=== PATIENT | male | born 2000 | race Caucasian/White ===

== ENCOUNTER 2024-08-03 11:02 | Emergency (ER) | payer OTHER, SELFPAY ==
[2024-08-03 11:39] VITALS: BP 116/77; PULSE 76; RESP 16; TEMP 36.7; O2SAT 98; BMI 27.6
--- NOTE | 2024-08-03 11:44 | ED.GENADULT ---
HPI - General Adult General Chief complaint: Ear Problems Stated complaint: Loss of hearing R ear Time Seen by Provider: 08/03/24 11:43 Source: patient, RN notes reviewed and old records reviewed Mode of arrival: ambulatory Limitations: no limitations History of Present Illness ED Provider: Anette NG narrative: 23-year-old male presents for evaluation of hearing loss. Patient was seen at outside facility about 2 weeks ago and diagnosed with bullous pharyngitis of the right ear. He was prescribed azithromycin He was also diagnosed with the tympanic membrane rupture of the time and was referred to ENT. The patient has not yet followed up with ENT He no longer has any pain to the right ear, there was no drainage from the right ear but reports decreased hearing over the last 4 days Related Data Allergies Allergy/AdvReac Type Severity Reaction Status Date / Time No Known Allergies Allergy Verified 08/03/24 11:43 Review of Systems Constitutional: Constitutional: Denies body ache(s), Denies chills, Denies fever(s) and Denies headache(s) ENT: Denies otalgia, Denies headache(s) and Reports hearing loss Neurologic: Denies headache(s) PMFSH Social History Social History Advance Directives: No Advance Directives Information Provided: Yes Physical Exam ED Vital Signs: Vital Signs - 24 hr 08/03/24 11:39 Temperature 98.1 F Pulse Rate 76 Respiratory Rate 16 Blood Pressure 116/77 Pulse Oximetry 98 Oxygen Delivery Method Room Air BMI result Body Mass Index 27.6 Const General: healthy appearing, comfortable, no acute distress, alert and awake Nutritional Appearance: well nourished HENNM Other: Right TM perforation. External ear canals clear. There is minimal erythema to the remaining TM. No otorrhea. No mastoid tenderness or postauricular edema Head: Yes normocephalic and Yes atraumatic Eyes Eyelids: Yes eyelids normal Conjunctivae: conjunctivae normal Sclerae: sclerae normal Corneas: corneas normal Pupils: Equal, round and reactive pupils present EOM: EOMs intact bilaterally Neck Neck: Yes full ROM Resp Effort & Inspection: normal respiratory effort, able to speak in complete sentences and not labored Skin General skin exam: elasticity normal Neuro Cranial nerves: Yes CN's II-XII intact bilaterally, Yes Equal, round and reactive pupils present and Yes Bilaterally intact EOM present Cognition (Neuro): normal cognition Extrem Other: Moving all extremities well without any obvious deformities Medical Decision Making Medical Decision Making MDM Narrative: 23-year-old male presents for evaluation of hearing loss to the right ear, he is 2 weeks status post a right tympanic membrane rupture, he was completed a course of azithromycin, he no longer has pain to the area. There was no evidence of acute infection to the area but the patient likely has hearing loss related to the tympanic membrane rupture. I encouraged him to follow up with ENT. I gave him a referral to our ENT office and he still has a referral to the outside facility as well. Differential Diagnosis Differential Diagnoses: The differential diagnosis associated with the presentation includes Sensorineural hearing loss Tympanic membrane rupture Otitis media Mastoiditis Discharge Plan Discharge Clinical Impression: Tympanic membrane perforation Patient Disposition: Home, Self-Care Instructions: Ruptured Eardrum (ED) Additional Instructions: It is important that you follow-up with the program and research coordinator. You should try not to get any water in your ear until then Follow-up with your primary doctor as well Referrals: Sachin Lee [Physician] - (right tm rupture, hearing loss) Print Language: Croatian
[2024-08-03 12:29] VITALS: BP 116/77; PULSE 76; RESP 16; TEMP 36.7; O2SAT 98
--- OUTSIDE RECORDS SUMMARY | 2024-08-03 15:40 | XMS_ITS | Clinical Summary ---
Author Organization [facility] Address [address] [place] [address] Phone Care Team Providers Care Trimmer Operator Three Knife Name Role Phone Physician, No Pcp Primary Care Provider Unavaila ble Allergies No known active allergies Medications Medication Sig Dispensed Refills Start Date End Date Status ibuprofen (ADVIL,MOTRIN) 600 mg tablet Take 1 tablet (600 mg total) by mouth every 6 (six) hours if needed for mild pain for up to 60 doses. 60 tablet 07/18/2024 Active azithromycin (ZITHROMAX) 250 mg tablet Take 2 tablets (500 mg total) by mouth 1 (one) time each day for 1 day, THEN 1 tablet (250 mg total) 1 (one) time each day for 4 days. 6 each 07/18/2024 07/23/2024 Encounters Date Type Department Care Team Description 07/18/2024 8:30 AM EST - 07/18/2024 10:49 AM EST Emergency [facility] Emergency [address] [place] [address] Bullous myringitis of right ear (Primary Dx); Ear drum perforation, right Discharge Disposition: Home or Self Care from Last 3 Months Social History Tobacco Use Types Packs/Day Years Used Date Smoking Tobacco: Never Smokeless Tobacco: Never Tobacco Cessation:Counseling Given: Not Answered Alcohol Use Standard Drinks/Week Comments Never 0 (1 standard drink = 0.6 oz pur e alcohol) Sex and Gender Information Value Date Recorded Sex Assigned at Male 07/18/2024 10:40 AM EST Gender Identity Male 07/18/2024 10:40 AM EST Sexual Orientation Straight 07/18/2024 10 :40 AM EST Job Start Date Occupation Industry Not on file Not on file Not on file Obstetrics History Last Filed Vital Signs Vital Sign Reading Time Taken Comments Blood Pressure 110/72 07/18/2024 7:55 AM EST Pulse 72 07/18/2024 7:55 AM EST Temperature 37 ??C (98.6 ??F) 07/18/2024 7:55 AM EST Respiratory Rate 18 07/18/2024 7:55 AM EST Oxygen Saturation 98% 07/18/2024 7:55 AM EST Inhaled Oxygen Concentration - - Weight 85.3 kg (188 lb) 07/18/2024 7:55 AM EST Height 175.3 cm (5' 9 ) 07/18/2024 7:55 AM EST Body Mass Index 27.76 07/18/2024 7:55 AM EST Plan of Treatment Health Maintenance Due Date Last Done Comments HPV Vaccines (1 - Male 3-dos e series) 2017 DTaP,Tdap,and Td Vaccines (1 - Tdap) 2021 Hepatitis B Vaccines (1 of 3 - 19+ 3-dose series) 2021 COVID-19 Vaccine (1 - 2023-2 5 season) 2024 Influenza Vaccine (#1) 2024 Annual Well Child Visit (3-2 1 years old) 07/18/2024 Depression Screening 07/18/2024 HIV Screening 07/18/2024 Hepatitis C Screening 07/18/2024 Social Influencers of Health Screening 07/18/2024 HIB Vaccines Aged Out No longer eligi ble based on patient's age to complete this topic Hepatitis A Vaccines Aged Out No long er eligible based on patient's age to complete this topic IPV Vaccines Aged Out No longer eligi ble based on patient's age to complete this topic MMR Vaccines Aged Out No longer eligi ble based on patient's age to complete this topic Meningococcal ACWY Vaccine Aged Out N o longer eligible based on patient's age to complete this topic Pneumococcal Vaccine: Pediat rics (0 to 5 Years) and At-Risk Patients (6 to 64 Years) Aged Out No longer eligible b ased on patient's age to complete this topic RSV Immunization Patients Un lashonda 20 months Aged Out No longer eligible b ased on patient's age to complete this topic Varicella Vaccines Aged Out No longer eligible based on patient's age to complete this topic Care Teams Trimmer Operator Three Knife Relationship Specialty Start Date End Date Physician, No Pcp PCP - General 07/18/24
--- OUTSIDE RECORDS SUMMARY | 2024-08-03 15:40 | XMS_ITS | Encounter Summary ---
Author Organization [facility] Address [address] [place] [address] Care Team Providers Care Recruitment Director Name Role Phone Physician, No Pcp Primary Care Provider Unavaila ble Reason for Referral * Consultation (Routine) - Pending Review Specialty Diagnoses / Procedures Referred By Contluisana burton Referred To Contact Otolaryngology Diagnoses Perforation of meniscus of temporomandibular joint Infection Darya Watson PA [address] [place] [address] Sandra Brown MD [address] [address] Referral ID Status Reason Start Date Expiration Date Visits Requested Visits Authorized [id number] Pending Review Specialty Services Required 07/18/2024 07/18/2025 1 1 Reason for Visit * Reason Comments Ear Injury Think my R eardrum is broken . +ringing, started this morning Encounter Details Date Type Department Care Team (Late st Contact Info) Description 07/18/2024 8:30 AM EST - 07/18/2024 10:49 AM EST Emergency [facility] Emergency [address] [place] [address] Bullous myringitis of right ear (Primary Dx); Ear drum perforation, right Discharge Disposition: Home or Self Care Social History Tobacco Use Types Packs/Day Years [...] file Not on file Not on file documented as of this encounter Last Filed Vital Signs Vital Sign Reading [...] Mass Index 27.76 07/18/2024 7:55 AM EST documented in this encounter Functional Status Functional Status Response Date of Assess ment Are you deaf or do you have serious difficulty h earing? No 07/18/2024 Are you blind or do you have serious difficulty seeing, even when wearing glasses? No 07/18/2024 Do you have serious difficul ty walking or climbing stairs? No 07/18/2024 Do you have serious difficulty dressing or bathi ng? No 07/18/2024 Because of a physical, menta l, or emotional condition, do you have serious difficulty doing errands alone such as visiting the doctor? No 07/18/2024 Cognitive Status Response Date of Assessm ent Because of a physical, menta l, or emotional condition, do you have serious difficulty concentrating, remembering, or making decisions? (5 years old or older) No 07/18/2024 documented as of this encounter Discharge Instructions * Discharge Instructions* JOHNNIE Mills - 07/18/2024 10:02 AM EST We sent a referral to ENT, someone should contact you with a follow-up appointment if you do not hear from anyone by the end of the week the number is listed on the referral sheet provided for you. The prescribed azithromycin as instructed. Take the prescribed ibuprofen 600 mg every 6 hours as needed for pain * Attachments The following attachments cannot be sent through Care Everywhere. * Perforated Eardrum (Croatian) documented in this encounter Medications at Time of Discharge Medication Sig Dispensed Refills Start Date End Date ibuprofen (ADVIL,MOTRIN) 600 mg tablet Take 1 tablet (600 mg total) by mouth every 6 (six) hours if needed for mild pain for up to 60 doses. 60 tablet 07/18/2024 azithromycin (ZITHROMAX) 250 mg tablet Take 2 tablets (500 mg total) by mouth 1 (one) time each day for 1 day, THEN 1 tablet (250 mg total) 1 (one) time each day for 4 days. 6 each 07/18/2024 07/23/2024 documented as of this encounter Ordered Prescriptions Prescription Sig Dispensed Refills Start Date End Da te ibuprofen (ADVIL,MOTRIN) 600 mg tablet Take 1 tablet (600 mg total) by mouth every 6 (six) hours if needed for mild pain for up to 60 doses. 60 tablet 07/18/2024 azithromycin (ZITHROMAX) 250 mg tablet Take 2 tablets (500 mg total) by mouth 1 (one) time each day for 1 day, THEN 1 tablet (250 mg total) 1 (one) time each day for 4 days. 6 each 07/18/2024 07/23/2024 documented in this encounter Discharge Disposition Disposition Code Departure Means Destination Comment s Home or Self Care documented in this encounter Progress Notes * Nicole Blancas RN - 07/18/2024 7:37 AM EST Pt reports R ear pain, thinks my R eardrum is broken . Reports ringing in the ear, started this morning. Denies any head injury or trauma, denies any drainage from the ear. * JOHNNIE Mills - 07/18/2024 7:34 AM EST Emergency Medicine Note Patient Name: Ventura Barnes Initial Evaluation: 07/18/2024 : 2000 Patient's PCP: No primary care provider on file. Emergency Physician: JOHNNIE Smith History of Present Illness Chief Complaint: Chief Complaint Patient presents with Ear Injury Think my R eardrum is broken . +ringing, started this morning HPI: 23-year-old male presents today with right ear pain. Patient states that he has had pain in his right ear for the past 3 days but became much worse this morning with some decreased hearing and some slight drainage from the ear. Patient notes a ringing sensation. Patient has not tried anything for the pain. Patient denies fever or chills. Patient does not currently have a PCP. ROS: I have performed a ROS with the pertinent positives and negatives documented in the history ofpresent illness. Previous History History reviewed. No pertinent past medical history. History reviewed. No pertinent surgical history. Social History Tobacco Use Smoking status: Never Smokeless tobacco: Never Substance Use Topics Alcohol use: Never Drug use: Never No family history on file. has No Known Allergies. No current facility-administered medications on file prior to encounter. No current outpatient medications on file prior to encounter. Physical Exam ED Triage Vitals [07/18/24 0755] Temp Heart Rate Resp BP 37 ??C (98.6 ??F) 72 18 110/72 SpO2 Temp Source Heart Rate Source Patient Position 98 % Oral -- Sitting BP Location FiO2 (%) Left arm -- General: awake, calm, cooperative, No apparent distress Skin: warm, dry Eyes: PERRLA, EOMI ENT: mucosa moist, throat is clear, no mastoid tenderness behind right ear, right ear with no tenderness over tragus and no pain with manipulation of the auricle, TM with large blister, ?small perforation lower right Neck: soft/supple, full range of motion Gastrointestinal: soft nontender, normal active bowel sounds, no hepatomegaly Musculoskeletal: moving all extremities Neurological: alert with no acute lateralizing deficit Psychiatric: stable mood and affect s Results Labs Reviewed - No data to display Abnormal Labs Reviewed - No data to display No orders to display I have discussed the incidental/abnormal imaging and/or lab abnormalities with the patient and haveinstructed them the need for further evaluation and workup with their primary care doctor. I have provided the patient with a paper copy of the abnormality. The laboratory results, imaging results and other diagnostic exam results were reviewed in the EMR. EKG Interpretation Critical Care Time None ? Medical Decision Making Patient has a bullous myringitis of the right ear and I suspect a small TM perforation as well. He was started on azithromycin, ENT referral placed. Medications - No data to display Clinical Impressions as of 07/18/24 1021 Bullous myringitis of right ear Ear drum perforation, right Procedures Procedures Diagnosis 1. Bullous myringitis of right ear 2. Ear drum perforation, right Disposition Discharge ED Prescriptions Medication Sig Dispense Start Date End Date Auth. Provider ibuprofen (ADVIL,MOTRIN) 600 mg tablet Take 1 tablet (600 mg total) by mouth every 6 (six) hours ifneeded for mild pain for up to 60 doses. 60 tablet 07/18/2024 -- JOHNNIE Mills azithromycin (ZITHROMAX) 250 mg tablet Take 2 tablets (500 mg total) by mouth 1 (one) time each dayfor 1 day, THEN 1 tablet (250 mg total) 1 (one) time each day for 4 days. 6 each 07/18/2024 07/23/2024 JOHNNIE Mills Physician Attestation JOHNNIE Mills 07/18/24 1024 documented in this encounter Plan of Treatment Scheduled Referrals Name Type Priority Associated Diagnoses Order Schedule Ambulatory referral to ENT Outpatient Referral Routine 1 Occurrence s starting 07/18/2024 until 07/18/2025 documented as of this encounter Visit Diagnoses Diagnosis Bullous myringitis of right ear- Primary Ear drum perforation, right documented in this encounter Care Teams Recruitment Director Relationship Specialty Start Date End Date Physician, No Pcp PCP - General 07/18/24 documented as of this encounter
== END 2024-08-03 12:29 | disposition home or self-care (01) ==
PROVIDERS: Emergency Provider Emergency Medicine
DX: H72.91 Unspecified perforation of tympanic membrane, right ear (principal); H91.91 Unspecified hearing loss, right ear
CPT/HCPCS: 99282

== ENCOUNTER 2024-11-13 11:56 | Emergency (ER) | payer OTHER, SELFPAY ==
[2024-11-13 12:25] VITALS: BP 106/66; PULSE 85; RESP 16; TEMP 36.3; O2SAT 99; BMI 26.9
--- NOTE | 2024-11-13 12:29 | ED.GENADULT ---
HPI - General Adult General Chief complaint: Eye Problems Stated complaint: L Eye Pain Time Seen by Provider: 11/13/24 13:00 Source: patient Mode of arrival: ambulatory Limitations: no limitations History of Present Illness ED Provider: Bakari Milligan PA-C HPI narrative: 24 yo male presents to the ER for evaluation of right eye pain, foreign body sensation for the last 5 days. He states it started out mild as an irritation. By 11/11 he reports the redness, pain, and swelling were worse so he went to a clinic in [place] who prescribed him Augmentin and Polymixin. he has been rubbing and itching the eye due to irritation, watering and feeling like something is in there. the redness is getting worse. MD complaint: right eye pain Onset (ago): day(s) Location: face Radiation: non-radiation Severity: moderate Quality: burning and aching Pain Consistency: constant Relieving factors: none Exacerbating factors: none Associated symptoms: denies other symptoms Treatments prior to arrival: other (abx) Related Data Previous Rx's ?Medication ?Instructions ?Recorded erythromycin 5 mg/gram (0.5 %) eye 0.5 inch ophthalmic (eye) BID 1 11/13/24 ointment week #3.5 grams ibuprofen 600 mg tablet 600 mg PO Q8H PRN fever or pain 11/13/24 #14 tabs Allergies Allergy/AdvReac Type Severity Reaction Status Date / Time No Known Allergies Allergy Verified 11/13/24 12:27 Review of Systems Review of Systems: Yes all other systems are reviewed and are negative PMFSH Social History Social History Advance Directives: No Advance Directives Information Provided: Yes Do you have a plan to hurt others: No Plan Physical Exam ED Vital Signs: Vital Signs - 24 hr 11/13/24 12:25 11/13/24 14:24 Temperature 97.3 F 97.3 F Pulse Rate 85 85 Respiratory Rate 16 16 Blood Pressure 106/66 106/66 Pulse Oximetry 99 99 Oxygen Delivery Method Room Air Room Air BMI result Body Mass Index 26.9 Appearance: Alert. Oriented X3. No acute distress. HEENT: normocephalic. right upper eyelid is erythematous and excoriated, right sclera and conjuctiva have severe injection. mild scleral injection on the left. EOMI and PERRLA. fluroscene exam with large circular uptake over the pupil centrally. no discharge. no periorbital edema. throat w/ tonsillomegaly, normal voice, no tonsillar exudate CVS: Normal heart rate and rhythm. Pulses normal. Respiratory: No respiratory distress. Skin: Skin warm and dry. Normal skin color. Normal skin turgor. No rashes. Extremities: normal inspection, no joint swelling Neuro: Oriented X 3. No motor deficit. No sensory deficit. Course Course Course Narrative: RME, this is a rapid medical exam performed by Jim Cheema please refer to primary provider for complete H&P- 24-year-old male presents for evaluation of right eye pain. He reports he had minor discomfort 5 days ago on Wednesday. Denies any trauma to the eye. He went to his doctor and was given antibiotic drops as well as Augmentin which he has been taking but reports that his symptoms are worsening. He reports that he still feels a foreign body sensation. plan for more dedicated ophthalmologic exam when room is available Medications Administered Discontinued Medications Generic Name Dose Route Start Last Admin Trade Name Charly PRN Reason Stop Dose Admin Acetaminophen 975 mg 11/13/24 14:07 11/13/24 14:20 Acetaminophen 325 Mg Tablet PO 11/13/24 14:08 975 mg ONCE ONE Administration Fluorescein Sodium 1 strip 11/13/24 12:29 11/13/24 14:14 Fluorescein Sodium Strip EYE-RIGHT 11/13/24 12:30 1 strip ONCE ONE Administration Tetracaine HCl 1 drop 11/13/24 12:29 11/13/24 14:14 Tetracaine Hcl/Pf 0.5% Oph Yandy 4 Ml Drops EYE-RIGHT 11/13/24 12:30 1 drop ONCE ONE Administration Medical Decision Making Medical Decision Making [facility] Narrative: 24-year-old male presents to the ER for evaluation of right eye pain, redness, irritation and foreign body sensation that started about 5 days ago. No improvement with oral Augmentin and topical polymyxin. He has been rubbing and scratching at the eye due to foreign body sensation. He reports it feels like sandpaper is in there. On the fluorescene exam he has large abrasion centrally. visual acuity is adequate. he has normal pupilary responses. case d/w dr. Alvarez. recommending erythromycin ointment and optho referral. patient counseled on the importance of refraining from rubbing or scratching the eye. stable for d/c home. Differential Diagnosis Differential Diagnoses: The differential diagnosis associated with the presentation includes Bacterial conjunctivitis, viral conjunctivitis, seasonal allergies, corneal abrasion, corneal ulcer, iritis, preseptal cellulitis Prescription Management I considered prescription management with: Pain Medication and Antibiotic Critical Care Time Critical Care Time Critical Care Time: No Discharge Plan Discharge Clinical Impression: Bacterial conjunctivitis Corneal abrasion Qualifiers: Encounter type: initial encounter Laterality: right Qualified Code(s): S05.01XA - Injury of conjunctiva and corneal abrasion without foreign body, right eye, initial encounter Patient Disposition: Home, Self-Care Instructions: Corneal Abrasion (DC), Conjunctivitis (ED) Additional Instructions: STOP using the polymyxin drops START using the erythromycin eye ointment two times per day you can CONTINUE the amoxicillin pills use cool compresses to the eye as needed for discomfort DO NOT rub or itch your eye recommend following up with the eye doctor - call for an appointment If you develop new or worsening symptoms call 911 or come back to the ER for further evaluation. Prescriptions: New erythromycin 5 mg/gram (0.5 %) ointment 0.5 inch ophthalmic (eye) BID 7 Days Qty: 3.5 0RF ibuprofen 600 mg tablet 600 mg PO Q8H PRN (Reason: fever or pain) Qty: 14 0RF Referrals: Cesario Amor [Physician] - Stand Alone Forms: Work/School Release Interventions: ED Discharge Assessment Last Done: 11/13/24 14:24 Discharge Date/Time: 11/13/24 14:24 Print Language: Solomon Islander
--- OUTSIDE RECORDS SUMMARY | 2024-11-13 13:12 | XMS_ITS | Clinical Summary ---
Author Organization [facility] Address [address] [place] [address] Phone Care Team Providers Care Director Of Global Talent Name Role Phone Physician, No Pcp Primary Care Provider Unavaila ble Allergies No known active allergies Medications ibuprofen (ADVIL,MOTRIN) 600 mg tablet Take 1 tablet (600 mg total) by mouth every 6 (six) hours if needed for mild pain for up to 60 doses. 60 tablet 5 Active triamcinolone (NASACORT) 55 mcg nasal inhaler Administer 2 sprays into each nostril 2 (two) times a day for 10 days. 10 mL 5 Active cetirizine-pseu doephedrine (ZyrTEC-D) 5-120 mg per 12 hr tablet Take 1 tablet by mouth 2 (two) times a day for 10 days. 20 each 5 Active penicillin v potassium (VEETID) 500 mg tablet Take 1 tablet (500 mg total) by mouth 2 (two) times a day for 10 days. 20 each 5 11/05/19 25 Encounters Date Type Department Care Team Description 10/25/2024 9:53 PM EDT - 10/25/2024 10:44 PM EDT [facility] Emergency [address] [place] [address] Postnasal drip (Primary Dx); Exudative pharyngitis Discharge Disposition: Home or Self Care from Last 3 Months Social History Tobacco Use Types Packs/Day Years Used Date Smoking Tobacco: Never Smokeless Tobacco: Never Tobacco Cessation:Counseling Given: Not Answered Alcohol Use Standard Drinks/Week Comments Never 0 (1 standard drink = 0.6 oz pur e alcohol) Sex and Gender Information Value Date Recorded Sex Assigned at Male 07/18/2024 10:40 AM EST Legal Sex Male 7:33 AM EST Gender Identity Male 07/18/2024 10:40 AM EST Sexual Orientation Straight 07/18/2024 10 :40 AM EST Obstetrics History Last Filed Vital Signs Vital Sign Reading Time Taken Comments Blood Pressure 120/72 10/25/2024 6:39 PM EDT Pulse 80 10/25/2024 6:39 PM EDT Temperature 37.1 ??C (98.8 ??F) 10/25/2024 6:39 PM ED T Respiratory Rate 16 10/25/2024 6:39 PM EDT Oxygen Saturation 98% 10/25/2024 10:18 PM EDT Inhaled Oxygen Concentration - - Weight 83.9 kg (185 lb) 10/25/2024 6:39 PM EDT Height 175.3 cm (5' 9 ) 10/25/2024 6:39 PM EDT Body Mass Index 27.32 10/25/2024 6:39 PM EDT Plan of Treatment Health Maintenance Due Date Last Done Comments HPV Vaccines (1 - Male 3-dos e series) 2017 Meningococcal B Vaccine (1 o f 2 - Standard) 2018 DTaP,Tdap,and Td Vaccines (1 - Tdap) 2021 Hepatitis B Vaccines (1 of 3 - 19+ 3-dose series) 2021 Pneumococcal Vaccine: Pediatrics (0 to 5 Years) and At-Risk Patients (6 to 64 Years) (1 of 2 - PCV) 2021 COVID-19 Vaccine (3 - 2023-2 5 season) 2024 12/22/2020, 12/01/2020 Depression Screening 07/18/2024 HIV Screening 07/18/2024 Hepatitis C Screening 07/18/2024 Social Influencers of Health Screening 07/18/2024 Influenza Vaccine (Season Ended) 2025 09/14/2022 HIB Vaccines Aged Out No longer eligi [...] to complete this topic RSV Immunization Patients Under 20 months Aged Out No longer eligible b ased on patient's age to complete this topic Varicella Vaccines Aged Out No longer eligible based on patient's age to complete this topic Procedures Procedure Name Priority Date/Time Associated Diagnosis Comments XR CHEST 2 VIEWS STAT 10/25/2024 6:50 PM EDT CULTURE THROAT STAT 10/25/2024 6:44 PM EDT RAPID STREP A SCREEN STAT 10/25/2024 6:44 PM EDT [id number], RSV, FLU A AND B QUALITATIVE RT-PCR, INTERNAL LAB STAT 10/25/2024 6:44 PM EDT from Last 3 Months Results * XR Chest 2 Views (10/25/2024 6:50 PM EDT) Anatomical Region Laterality Modality Body Radiographic Dahlia ging 10/26/2024 8:06 AM EDT Impressions 10/26/2024 8:06 AM EDT Normal chest radiographs. -------- FINAL REPORT -------- Dictated By: Misha Gan Dictated Date: 10/26/2024 08:06 ET Assigned Physician: Misha Gan Reviewed and Electronically Signed By: Misha Gan Signed Date: 10/26/2024 08:06 ET Workstation ID: [id number] Transcribed By: Self Edit Transcribed Date: 10/26/2024 08:06 ET Narrative 10/26/2024 8:06 AM EDT PROCEDURE: PA and lateral radiographs of the chest. HISTORY: Asthma, acute. COMPARISON: None. FINDINGS: The heart, mediastinum, lungs, pleural spaces, and bony thorax are normal. Procedure Note Misha Gan MD - 10/26/2024 PROCEDURE: PA and lateral radiographs of the chest. HISTORY: Asthma, acute. COMPARISON: None. FINDINGS: The heart, mediastinum, lungs, pleural spaces, and bony thorax arenormal. IMPRESSION: Normal chest radiographs. -------- FINAL REPORT -------- Dictated By: Misha Gan Dictated Date: 10/26/2024 08:06 ET Assigned Physician: Misha Gan Reviewed and Electronically Signed By: Misha Gan Signed Date: 10/26/2024 08:06 ET Workstation ID: [id number] Transcribed By: Self Edit Transcribed Date: 10/26/2024 08:06 ET [facility] IMG XR PROCEDURES Final Result * [id number], RSV, Influenza A and B qualitative RT-PCR (10/25/2024 6:44 PM EDT) Pathologist [facility] Influenza A PCR Not Detected Not Detected LAB MICROBIOLOGY METHOD 10/25/2024 7:55 PM EDT [facility] Influenza B PCR Not Detected Not Detected LAB MICROBIOLOGY METHOD 10/25/2024 7:55 PM EDT [facility] RSV PCR Not Detected Not Detected LAB MICROBIOLOGY METHOD 10/25/2024 7:55 PM EDT [facility] SARS COV-2 Not Detected Not Detected LAB MICROBIOLOGY METHOD 10/25/2024 7:55 PM EDT [facility] Swab Structure of right anterior naris / Unknown Non-blood Collection / Unknown 10/25/2024 6:44 PM EDT 10/25/2024 7:03 PM EDT Narrative [facility] - 10/25/2024 7:55 PM EDT Disclaimer: ??Testing was performed using the [employer] GeneXpert Xpress SARS-CoV-2 _Flu_RSV PLUS PCR assay. ??The manner in which this information is used to guide patient care is the responsibility of the healthcare provider. ??Results should be correlated with the clinical history, epidemiological data, and other data available to the clinician evaluating the patient. ??Negative results do not preclude infection. ??This test has been authorized by the FDA under an Emergency Use Authorization (EUA). ??This test is only authorized for the duration of time the declaration that circumstances exist justifying the authorization of the emergency use of in vitro diagnostic tests for detection of SARS-CoV-2 virus and/or diagnosis of COVID-19 infection under section 564 (b) (1) of the Act, 21 U.S.C 360bbb-3 (b) (1), unless the authorization is terminated or revoked sooner. ?? Reference Range: Not Detected Fact sheet for Healthcare providers can be found at https://www.fda.gov/media/892196/download. ?? Fact sheet for Healthcare patients can be found at https://www.fda.gov/media/027364/download. Omari Yoo MD LAB MICROBIOLOGY - GENERAL [facility] Final Result Performing Organization Address [facility]/ZIP Co de Phone Number [facility] [address] [place] [address], [place] [phone] * Rapid strep A screen (10/25/2024 6:44 PM EDT) Pathologist [facility] Strep A Ag Negative Negative, Invalid 10/25/2024 7:15 PM EDT [facility] Comment:Refer to Throat Cult ure. Swab Structure of anterior portion of neck / Unknown Non-blood Collection / Unknown 10/25/2024 6:44 PM EDT 10/25/2024 7:03 PM EDT us Omari Yoo MD LAB MICROBIOLOGY - GENERAL [facility] Final Result Performing Organization Address [facility]/ZIP Co de Phone Number [facility] [address] [place] [address], [place] [phone] * (ABNORMAL) Culture throat (10/25/2024 6:44 PM EDT) Culture, Throat Streptococcus beta-hemolytic Group G(A) 10/26/2024 10:34 AM EDT [facility] Comment: Susceptibility testing is not routinely performed for Beta Streptococcus isolates since these organisms are predictably sensitive to Penicillin. If the Patient is not responding, is allergic to Penicillin, or further therapeutic information is requir ed, please consult an Infectious Disease Specialist. Swab Structure of anterior portion of neck / Unknown Non-blood Collection / Unknown 10/25/2024 6:44 PM EDT 10/25/2024 7:[address] [facility] LAB MICROBIOLOGY - GENERAL [facility]AN [facility] Final Result [facility] [address] [place] [address], [place] [phone] from Last 3 Months Insurance [facility] [employer] [employer] Care Teams Director Of Global Talent Relationship Specialty Start Date End Date Physician, No Pcp PCP - General 07/18/24
[2024-11-13] MEDS: Tetracaine HCl/PF 0.5% Oph Sol 4 ML DROPS 1 DROP EYE-RIGHT (14:14)
[2024-11-13] MEDS: Fluorescein Sodium STRIP 1 STRIP EYE-RIGHT (14:14)
[2024-11-13] MEDS: Acetaminophen 325 MG TABLET 975 MG PO (14:20)
[2024-11-13 14:24] VITALS: BP 106/66; PULSE 85; RESP 16; TEMP 36.3; O2SAT 99
== END 2024-11-13 14:24 | disposition home or self-care (01) ==
PROVIDERS: Emergency Provider Emergency Medicine Emergency Medical Services
DX: S05.01XA Injury of conjunctiva and corneal abrasion without foreign body, right eye, initial encounter (principal); X58.XXXA Exposure to other specified factors, initial encounter; H57.11 Ocular pain, right eye; Y93.9 Activity, unspecified; Y92.9 Unspecified place or not applicable; Y99.9 Unspecified external cause status
CPT/HCPCS: 99283